=== PATIENT | female | born 1970 | race Caucasian/White ===

== ENCOUNTER 2017-12-28 12:53 | Emergency (ER) | payer MEDICAID ==
[~2017-12-28] VITALS: Ht 152.4 cm; Wt 127.9 kg
[2017-12-28 12:57] VITALS: Ht 152.4 cm; Wt 127.9 kg
[2017-12-28 13:27] VITALS: BP 182/127
== END 2017-12-28 13:27 | disposition home or self-care (01) ==
LOC: ED 12:53
DX: R21 Rash and other nonspecific skin eruption (principal); I10 Essential (primary) hypertension